=== PATIENT | female | born 1970 | race Caucasian/White ===

== ENCOUNTER 2019-04-19 04:00 | Emergency (ER) | payer SELFPAY ==
[~2019-04-19] VITALS: Ht 170.1 cm; Wt 108.8 kg
[2019-04-19 04:31] LABS: BASOPHILS % (AUTO) 1 % (0-10); EOSINOPHILS # (AUTO) 0.1 10^3/uL (0.0-0.3); EOSINOPHILS % (AUTO) 2 % (0-10); HEMATOCRIT 43 % (35-52); HEMOGLOBIN 14.3 G/DL (11.5-16.0); LYMPHOCYTES # (AUTO) 3.4 X 10^3 (1.0-4.0); LYMPHOCYTES % (AUTO) 47 % (12-44); MEAN CORPUSCULAR HEMOGLOBIN 28 PG (25-34); MEAN CORPUSCULAR HGB CONC 33 G/DL (32-36); MEAN CORPUSCULAR VOLUME 85 FL (80-99); MONOCYTES # (AUTO) 0.6 X 10^3 (0.0-1.0); MONOCYTES % (AUTO) 8 % (0-12); NEUTROPHILS # (AUTO) 3.1 X 10^3 (1.8-7.8); NEUTROPHILS % (AUTO) 42 % (42-75); PLATELET COUNT 235 10^3/uL (130-400); RED CELL DISTRIBUTION WIDTH 13.4 % (10.0-14.5); WHITE BLOOD COUNT 7.3 10^3/uL (4.3-11.0)
[2019-04-19 04:46] LABS: BILIRUBIN,URINE NEGATIVE (NEGATIVE); CLARITY,URINE CLEAR; COLOR,URINE YELLOW; GLUCOSE, URINE (UA) NEGATIVE (NEGATIVE); KETONES,URINE NEGATIVE (NEGATIVE); LEUKOCYTE ESTERASE ,URINE NEGATIVE (NEGATIVE); NITRITE,URINE NEGATIVE (NEGATIVE); PROTEIN,URINE NEGATIVE (NEGATIVE)
[2019-04-19 04:49] LABS: ALANINE AMINOTRANSFERASE 27 U/L (0-55); ALBUMIN 4.4 GM/DL (3.2-4.5); ALKALINE PHOSPHATASE 99 U/L (40-136); BILIRUBIN,TOTAL 0.4 MG/DL (0.1-1.0); BUN/CREATININE RATIO 21; CALCIUM 9.2 MG/DL (8.5-10.1); CARBON DIOXIDE 21 MMOL/L (21-32); CHLORIDE 106 MMOL/L (98-107); CREATININE SERUM 0.81 MG/DL (0.60-1.30); GFR ESTIMATED > 60; GLUCOSE 114 MG/DL (70-105); SODIUM 142 MMOL/L (135-145); TOTAL PROTEIN 7.4 GM/DL (6.4-8.2)
[2019-04-19 05:01] LABS: AMPHETAMINE SCREEN, URINE NEGATIVE (NEGATIVE); BACTERIA,URINE MODERATE /HPF; BARBITURATE SCREEN URINE NEGATIVE (NEGATIVE); BENZODIAZEPINES SCREEN URINE NEGATIVE (NEGATIVE); CANNABINOID SCREEN, URINE NEGATIVE (NEGATIVE); COCAINE SCREEN URINE NEGATIVE (NEGATIVE); METHADONE STAT NEGATIVE (NEGATIVE); METHAMPHETAMINE SCREEN URINE S NEGATIVE (NEGATIVE); OPIATE SCREEN URINE NEGATIVE (NEGATIVE); OXYCODONE STAT NEGATIVE (NEGATIVE); PROPOXYPHENE STAT NEGATIVE (NEGATIVE); SQUAMOUS EPITHELIAL CELL,UR 0-2 /HPF; TRICYCLIC ANTIDEPRESSANTS SCRE NEGATIVE (NEGATIVE)
[2019-04-19 05:08] LABS: TSH (THYROID ANALYZER) 1.78 UIU/ML (0.35-4.94)
--- NOTE | 2019-04-19 05:29 | ED Neurological Problem ---
General Chief Complaint: Altered Mental Status Stated Complaint: SPEECH SLURRED,AMS Nursing Triage Note: C/O RECENT CONFUSION, STRANGE NUMB FEELING FROM LEFT OUTER CHEST TO LEFT ARM. SOB AT NIGHT WHEN TRYING TO SLEEP, SO NOT BEEN SLEEPING, ALSO POOR MEMORY. Nursing Sepsis Screen: No Definite Risk Source: patient Exam Limitations: no limitations History of Present Illness Date Seen by Provider: Apr 19, 2019 Time Seen by Provider: 04:18 Initial Comments This 48-year-old woman presents to the emergency room with primary concern of feeling confused at work tonight. She reports her speech also seemed slurred at that time. This occurred about one hour prior to arrival. She also reports left chest, shoulder, and arm numbness for about 2 weeks. She seems hypertensive during initial assessment blood pressures are extremely difficult to obtain due to upper arm diameter. Patient has been on Lexapro for a couple of months. She denies any tobacco, alcohol, or drug use. She denies any fever or urinary symptoms. Patient is alert and oriented on arrival. She walks without any difficulty. She has no measurable neurologic deficits during assessment. Patient receives her primary care at [facility] in [place]. Patient reports a history of hypertension which she has elected to not treat. Allergies and Home Medications Allergies Coded Allergies: acetaminophen (Verified Adverse Reaction, Unknown, Hallucinations, 04/19/19) propoxyphene (Verified Adverse Reaction, Unknown, Hallucinations, 04/19/19) Patient Home Medication List Home Medication List Reviewed: Yes Review of Systems Review of Systems Constitutional: no symptoms reported Eyes: No Symptoms Reported Ears, Nose, Mouth, Throat: no symptoms reported Respiratory: no symptoms reported Cardiovascular: see HPI Gastrointestinal: no symptoms reported Genitourinary: no symptoms reported : No Musculoskeletal: no symptoms reported Skin: no symptoms reported Psychiatric/Neurological: See HPI Endocrine: No Symptoms Reported Hematologic/Lymphatic: No Symptoms Reported Past Yszmgeo-Jhleay-Dunmhe Hx Past Med/Social Hx: Reviewed and Corrections made Patient Social History Alcohol Use: Denies Use Recreational Drug Use: No Recent Foreign Travel: No Contact w/Someone Who Travel: No Recent Infectious Disease Expo: No Recent Hopitalizations: No Physical Abuse: No Sexual Abuse: No Mistreated: No Fear: No Past Medical History Surgeries: Yes Section, Hysterectomy Respiratory: No Cardiac: Yes Hypertension Neurological: No : No Reproductive Disorders: No HR ADMINISTRATOR History: Hysterectomy Genitourinary: No Gastrointestinal: No Musculoskeletal: No Endocrine: No HEENT: No Cancer: No Psychosocial: Yes Anxiety Integumentary: No Blood Disorders: No Physical Exam Vital Signs Vital Signs - First Documented 04/19/19 04:09 Temp 36.6 Pulse 88 Resp 16 B/P (MAP) 174/115 (134) Pulse Ox 96 Capillary Refill : Less Than 3 Seconds Height, Weight, BMI Height: '" Weight: lbs. oz. 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, no motor/sensory deficits, alert, normal mood/affect, oriented x 3 Crainal Nerves: normal hearing, normal speech, PERRL Coordination/Gait: normal finger to nose (Normal heel to baugh), normal gait Motor/Sensory: no motor deficit, no sensory deficit Skin: normal color, warm/dry Progress/Results/Core Measures Results/Orders Lab Results Laboratory Tests Test 04/19/19 04:25 04/19/19 04:36 Range/Units White Blood Count 7.3 4.3-11.0 10^3/uL Red Blood Count 5.07 4.35-5.85 10^6/uL Hemoglobin 14.3 11.5-16.0 G/DL Hematocrit 43 35-52 % Mean Corpuscular Volume 85 80-99 FL Mean Corpuscular Hemoglobin 28 25-34 PG Mean Corpuscular Hemoglobin Concent 33 32-36 G/DL Red Cell Distribution Width 13.4 10.0-14.5 % Platelet Count 235 130-400 10^3/uL Mean Platelet Volume 11.0 H 7.4-10.4 FL Neutrophils (%) (Auto) 42 42-75 % Lymphocytes (%) (Auto) 47 H 12-44 % Monocytes (%) (Auto) 8 0-12 % Eosinophils (%) (Auto) 2 0-10 % Basophils (%) (Auto) 1 0-10 % Neutrophils # (Auto) 3.1 1.8-7.8 X 10^3 Lymphocytes # (Auto) 3.4 1.0-4.0 X 10^3 Monocytes # (Auto) 0.6 0.0-1.0 X 10^3 Eosinophils # (Auto) 0.1 0.0-0.3 10^3/uL Basophils # (Auto) 0.0 0.0-0.1 10^3/uL Sodium Level 142 135-145 MMOL/L Potassium Level 4.0 3.6-5.0 MMOL/L Chloride Level 106 98-107 MMOL/L Carbon Dioxide Level 21 21-32 MMOL/L Anion Gap 15 H 5-14 MMOL/L Blood Urea Nitrogen 17 7-18 MG/DL Creatinine 0.81 0.60-1.30 MG/DL Estimat Glomerular Filtration Rate > 60 BUN/Creatinine Ratio 21 Glucose Level 114 H 70-105 MG/DL Calcium Level 9.2 8.5-10.1 MG/DL Corrected Calcium 8.9 8.5-10.1 MG/DL Total Bilirubin 0.4 0.1-1.0 MG/DL Aspartate Amino Transf (AST/SGOT) 23 5-34 U/L Alanine Aminotransferase (ALT/SGPT) 27 0-55 U/L Alkaline Phosphatase 99 40-136 U/L Total Protein 7.4 6.4-8.2 GM/DL Albumin 4.4 3.2-4.5 GM/DL TSH Sharkey Testing 1.78 0.35-4.94 UIU/ML Serum Alcohol < 10 <10 MG/DL Urine Color YELLOW Urine Clarity CLEAR Urine pH 5.0 5-9 Urine Specific [place] >=1.030 1.016-1.022 Urine Protein NEGATIVE NEGATIVE Urine Glucose (UA) NEGATIVE NEGATIVE Urine Ketones NEGATIVE NEGATIVE Urine Nitrite NEGATIVE NEGATIVE Urine Bilirubin NEGATIVE NEGATIVE Urine Urobilinogen 0.2 < = 1.0 MG/DL Urine Leukocyte Esterase NEGATIVE NEGATIVE Urine RBC (Auto) NEGATIVE NEGATIVE Urine RBC NONE /HPF Urine WBC NONE /HPF Urine Squamous Epithelial Cells 0-2 /HPF Urine Crystals NONE /LPF Urine Bacteria MODERATE H /HPF Urine Casts NONE /LPF Urine Mucus NEGATIVE /LPF Urine Culture Indicated NO Urine Opiates Screen NEGATIVE NEGATIVE Urine Oxycodone Screen NEGATIVE NEGATIVE Urine Methadone Screen NEGATIVE NEGATIVE Urine Propoxyphene Screen NEGATIVE NEGATIVE Urine Barbiturates Screen NEGATIVE NEGATIVE Ur Tricyclic Antidepressants Screen NEGATIVE NEGATIVE Urine Phencyclidine Screen NEGATIVE NEGATIVE Urine Amphetamines Screen NEGATIVE NEGATIVE Urine Methamphetamines Screen NEGATIVE NEGATIVE Urine Benzodiazepines Screen NEGATIVE NEGATIVE Urine Cocaine Screen NEGATIVE NEGATIVE Urine Cannabinoids Screen NEGATIVE NEGATIVE My Orders Orders - UMER SUAREZ MD Alcohol (04/19/19 04:27) Cbc With Automated Diff (04/19/19 04:27) Comprehensive Metabolic Panel (04/19/19 04:27) Drug Screen Stat (Urine) (04/19/19 04:27) Thyroid Analyzer (04/19/19 04:27) Ua Culture If Indicated (04/19/19 04:27) Ed Iv/Invasive Line Start (04/19/19 04:27) Chest Pa/Lat (2 View) (04/19/19 04:28) Ekg Tracing (04/19/19 05:31) Vital Signs/I&O 04/19/19 04/19/19 04:09 05:32 Temp 36.6 Pulse 88 66 Resp 16 12 B/P (MAP) 174/115 (134) 160/101 (134) Pulse Ox 96 99 Blood Pressure Mean: 134 Progress Progress Note : Progress Note Patient had no measurable neurologic deficits. She did not appear confused during her ER visit. NIH stroke score was zero. Patient did appear to be hypertensive although obtaining accurate blood pressure measurements in very difficult. With careful placement of a long cuff, some reasonable blood pressures were obtained prior to departure. Patient was encouraged to follow up at [facility] within 48 hours to repeat a blood pressure measurement. I suspect she is having some adverse reactions to Lexapro which was started within the past couple of months. I've encouraged her to cut the dose in half for a week and then stop to determine if this improves her symptoms. Initial ECG Impression Date: Apr 19, 2019 Initial ECG Impression Time: 04:13 Initial ECG Rate: 87 Initial ECG Rhythm: Normal Sinus Comment Sinus rhythm with no ST elevation or depression. Left axis deviation and LVH by automated read. Departure Impression Primary Impression: Altered mental status Qualified Codes: R41.82 - Altered mental status, unspecified Additional Impressions: Paresthesia of left arm Hypertension Qualified Codes: I10 - Essential (primary) hypertension Disposition: 01 HOME, SELF-CARE Condition: Improved Departure-Patient Inst. Decision time for Depature: 05:27 Referrals: NO,LOCAL PHYSICIAN (PCP/Family) Primary Care Physician Patient Instructions: High Blood Pressure (DC), Paresthesias (DC) Add. Discharge Instructions: Some of your symptoms may be related to Lexapro. Please taper off Lexapro by cutting your tablets in half and taking 5 mg daily for a week. Then stop the Lexapro. Follow-up at the [facility] as soon as possible. Please call them this morning for an appointment. Please have your blood pressure checked in the clinic within the next 48 hours even if you do not have an appointment to be seen. Return to the emergency room if you have worsening symptoms. All discharge instructions reviewed with patient and/or family. Voiced understanding. UMER SUAREZ MD Apr 19, 2019 05:29
[2019-04-19 05:32] VITALS: BP 160/101
--- NOTE | 2019-04-19 08:17 | Diagnostic Imaging Report ---
INDICATION: Cough and congestion, not feeling well EXAMINATION: Two-view chest FINDINGS: Heart unremarkable. Pulmonary vasculature normal. The lungs and pleural spaces clear. Degenerative findings in visualized spine. IMPRESSION: 1. No acute process. Dictated by: Dictated on workstation # [id number]
== END 2019-04-19 05:40 | disposition home or self-care (01) ==
LOC: ER 04:05
DX: R41.82 Altered mental status, unspecified (principal); R20.2 Paresthesia of skin; I10 Essential (primary) hypertension; F41.9 Anxiety disorder, unspecified; Z88.5 Allergy status to narcotic agent; Z88.6 Allergy status to analgesic agent; Z90.710 Acquired absence of both cervix and uterus
CPT/HCPCS: 36415; 71046; 80053; 80306; 80320; 81000; 84443; 85025; 93005